=== PATIENT | female | born 2000 | race Caucasian/White ===

== ENCOUNTER 2020-10-10 14:15 | Emergency (ER) | payer SELFPAY | END 2020-10-10 14:56 | disposition home or self-care (01) | LOC: ERS 14:15 | DX: L03.114 Cellulitis of left upper limb (principal); R00.0 Tachycardia, unspecified; F17.210 Nicotine dependence, cigarettes, uncomplicated | CPT/HCPCS: 99283 ==

== ENCOUNTER 2022-01-05 08:40 | Outpatient (CLI) | payer OTHER | END 2022-01-05 08:41 | disposition home or self-care (01) | LOC: BICULT 08:40 | PROVIDERS: ATTEND Family Medicine | DX: Z34.02 Encounter for supervision of normal first pregnancy, second trimester (principal); Z3A.20 20 weeks gestation of pregnancy | CPT/HCPCS: 76805 ==